=== PATIENT | male | born 1985 | race Caucasian/White ===

== ENCOUNTER 2024-10-17 10:45 | Emergency (ER) | payer OTHER, SELFPAY ==
[2024-10-17 10:52] VITALS: BP 142/94; PULSE 71; TEMP 37; O2SAT 98; BMI 26.6
--- NOTE | 2024-10-17 11:00 | XR_ITS ---
[place] [id number] Patient Name: GHAZAL EDWARD MRN: [id number] date: 1985 Sex: M Assigned Patient Location: ER Current Patient Location: Accession/Order Number: [id number] Exam Date: 10/17/2024 12:40 Report Date: 10/17/2024 12:41 At the request of: JOB JOHNSON MD Procedure: XR knee RT 3V 3 views right knee plain film COMPARISON: None HISTORY: Right anterior knee pain injury. ACUTE FINDINGS: No acute findings DEGENERATIVE CHANGE: Unremarkable SOFT TISSUE FINDINGS: Prepatellar soft tissue prominence JOINT EFFUSION: None POSTOP CHANGES: None BONE MINERALIZATION: Adequate XR/XR knee RT 3V IMPRESSION: No acute displaced fracture. Prepatellar soft tissue prominence Impression dictated by: Kavon Madsen M.D. 10/17/2024 12:41 PM Dictation Location: [place] [address] Electronically authenticated by: [id number] Y Date: 10/17/2024 12:41
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
[2024-10-17] MEDS: BACITRACIN 0.9 GM PACKET 1 PACKET TOPICAL (11:28)
== END 2024-10-17 12:39 | disposition home or self-care (01) ==
PROVIDERS: Emergency Provider Emergency Medicine; Family Provider Internal Medicine; PCP Internal Medicine
DX: S80.01XA Contusion of right knee, initial encounter (principal); S00.81XA Abrasion of other part of head, initial encounter; W18.09XA Striking against other object with subsequent fall, initial encounter
CPT/HCPCS: 73562; 99283